=== PATIENT | female | born 1990 | race Caucasian/White ===

== ENCOUNTER 2023-05-18 17:54 | Inpatient (IN) ==
[2023-05-18] MEDS ORDERED: Lidocaine 1% VIAL 10 MG/ML 30 ML VIAL INJ PRN (19:45)
[2023-05-18] MEDS: Dinoprostone 10 MG VAG.SUPP VAGINAL ONE (20:13)
[2023-05-18 21:22] LABS: Urine Benzodiazepine Screen None Detected (None Detect); Urine Cannabinoids Screen None Detected (None Detect); Urine Opiates Screen None Detected (None Detect)
[2023-05-18] MEDS ORDERED: Morphine 10 MG/ML VIAL (1 ml) IM PRN (22:31)
[2023-05-18] MEDS ORDERED: Prochlorperazine 5 mg/ml 2 ml VIAL (10 mg) IM PRN (22:31)
[2023-05-19] MEDS: Calcium Carb (TUMS) 500 mg CHEW TAB PO PRN (09:12)
[2023-05-19] MEDS: Morphine 10 MG/ML VIAL (1 ml) IV PRN (11:07)
[2023-05-19] MEDS: Lactated Ringers 1000 ml BAG 1,000 ML IV ONE (11:08)
[2023-05-19] MEDS: Buffered Lidocaine 1% SYRIN 1 ml INTRADERM ONE (11:08)
[2023-05-19] MEDS: Prochlorperazine 5 mg/ml 2 ml VIAL (10 mg) IV PRN (11:10)
[2023-05-19 12:25] LABS: ABS Basophils 0.1 10^3/uL (0.0-0.1); ABS Eosinophils 0.1 10^3/uL (0.0-0.5); ABS Lymphocytes 1.9 10^3/uL (1.0-4.8); ABS Monocytes 0.7 10^3/uL (0.0-0.9); ABS Neutrophils 9.2 10^3/uL (1.5-7.6); Eosinophil % 0.4 %; Hematocrit 37.1 % (35-45); Hemoglobin 12.7 g/dL (11.5-14.3); Mean Corpuscular Hemoglobin 30.4 pg (27-33); Mean Corpuscular Hgb Conc 34.3 g/dL (31-36); Mean Corpuscular Volume 88.7 fL (80-97); Mean Platelet Volume 8.6 fL (7.5-11.2); Platelet Count 229 10^3/uL (150-450); Red Blood Count 4.18 10^6/uL (3.63-4.92); Red Cell Distribution Width 14.3 % (12-17); White Blood Count 11.9 10^3/uL (3.8-11.8)
[2023-05-19] MEDS ORDERED: Ondansetron 4 mg VIAL 2 MG/ML 2 ml VIAL IV PRN (12:32)
[2023-05-19] MEDS: miSOPROStol 100 mcg TAB PO ONE ×3 (13:00→22:16)
[2023-05-20] MEDS: miSOPROStol 100 mcg TAB PO ONE (01:17)
[2023-05-20] MEDS: miSOPROStol 100 mcg TAB ONE (09:15)
[2023-05-20] MEDS: fentaNYL 100 mcg/2 ml 50 MCG/ML VIAL IV SLOW PU PRN (15:00)
[2023-05-20] MEDS: Lactated Ringers 1000 ml BAG 1,000 ML IV SCH (21:59)
[2023-05-20] MEDS: Oxytocin in LR 20,000 MILLI.UNIT/1,000 ML BAG IV SCH (21:59)
[2023-05-21] MEDS ORDERED: Lidocaine 1.5% EPI 1:200,000 30 ML SDV ONE (02:43)
[2023-05-21] MEDS: OBEPIDURAL (200 ML) 200 ML EPIDURAL ONE (03:28)
[2023-05-21 04:48] LABS: Urine Appearance Clear; Urine Bilirubin Negative (Negative); Urine Blood 1+ (Negative); Urine Color Yellow; Urine Glucose Negative (Negative); Urine Ketones 4+ (Negative); Urine Nitrite Negative (Negative); Urine Protein 1+ (>=30 mg/dL) (Negative); Urine Specific Gravity 1.022 (1.002-1.030); Urine Urobilinogen Negative (Negative); Urine pH 6.5 (5.0-8.0)
[2023-05-21 06:03] LABS: Urine Bacteria Absent /HPF (Absent); Urine Red Blood Cell 1+(3-5/hpf) /HPF (0-Trace); Urine Squamous Epithelial Cell Present /HPF (Absent); Urine White Blood Cell Absent /HPF (0-Trace)
[2023-05-21] MEDS ORDERED: Dexamethasone IV 4 MG/ML VIAL 1 ml VIAL ONE (10:43)
[2023-05-21] MEDS ORDERED: Ondansetron 4 mg VIAL 2 MG/ML 2 ml VIAL ONE (10:43)
[2023-05-21] MEDS ORDERED: Oxytocin 10 UNITS/ML 1 ML VIAL ONE (10:43)
[2023-05-21] MEDS ORDERED: fentaNYL 100 mcg/2 ml 50 MCG/ML VIAL ONE (10:46)
[2023-05-21] MEDS ORDERED: Chloroprocaine 3% 20 ml VIAL ONE (10:46)
[2023-05-21] MEDS: Sodium Citrate/Citric Acid LIQ 15 ML UDC PO ONE (10:52)
[2023-05-21] MEDS: ceFOXitin 2 GM IVPREMIX 2 GM/50 ML BAG IVPB ONE (10:53)
[2023-05-21] MEDS ORDERED: Phenylephrine 40 mcg/mL 10mL (400mcg) SYRINGE ONE (11:20)
[2023-05-21] MEDS ORDERED: Lidocaine 2% w/ EPI 1:200,000 MPF 20 ML SDV VIAL ONE (11:26)
[2023-05-21] MEDS: Oxytocin in LR 20,000 MILLI.UNIT/1,000 ML BAG IV SCH (11:37)
[2023-05-21] MEDS ORDERED: Methylergonovine 0.2 mg AMPULE 1 ml AMP ONE (11:42)
[2023-05-21] MEDS ORDERED: Morphine PF AMP (0.5MG/ML) 5 MG/10 ML AMP ONE ×2 (11:50→12:08)
[2023-05-21] MEDS ORDERED: Naloxone 0.4 mg VIAL 0.4 mg/ml 1 ml VIAL IV PRN (11:53)
[2023-05-21] MEDS ORDERED: Metoclopramide 5 MG/ML VIAL (10 mg) IV PRN (11:54)
[2023-05-21] MEDS ORDERED: Acetaminophen IV 1 GM/100ML 1,000 MG/100 ML BAG IV PRN (11:54)
[2023-05-21] MEDS ORDERED: Ondansetron 4 mg VIAL 2 MG/ML 2 ml VIAL IV PRN (11:54)
[2023-05-21] MEDS ORDERED: Naloxone 0.4 mg VIAL 0.4 mg/ml 1 ml VIAL IV PUSH PRN (11:54)
[2023-05-21] MEDS ORDERED: Acetaminophen IV 1 GM/100ML 1,000 MG/100 ML BAG IV ONE (11:58)
[2023-05-21] MEDS ORDERED: Dibucaine 1% OINT 28.35 GM TUBE PR PRN (12:33)
[2023-05-21] MEDS ORDERED: Glycerin ADULT 2.4 gm SUPP PR PRN (12:33)
[2023-05-21] MEDS ORDERED: Witch Hazel PAD JAR TOPICAL PRN (12:33)
[2023-05-21] MEDS ORDERED: Lactated Ringers 1000 ml BAG 1,000 ML IV SCH (13:00)
[2023-05-21] MEDS: fentaNYL 100 mcg/2 ml 50 MCG/ML VIAL IV PRN (13:03)
[2023-05-22 06:45] LABS: ABS Basophils 0.1 10^3/uL (0.0-0.1); ABS Lymphocytes 2.4 10^3/uL (1.0-4.8); ABS Monocytes 1.4 10^3/uL (0.0-0.9); ABS Neutrophils 14.5 10^3/uL (1.5-7.6); ABS Nucleated RBC 0.01 10^3/ul; Eosinophil % 0.1 %; Hematocrit 29.4 % (35-45); Hemoglobin 10.2 g/dL (11.5-14.3); Lymphocyte % 13.1 %; Mean Corpuscular Hemoglobin 30.6 pg (27-33); Mean Corpuscular Hgb Conc 34.5 g/dL (31-36); Mean Corpuscular Volume 88.7 fL (80-97); Mean Platelet Volume 8.2 fL (7.5-11.2); Nucleated Red Blood Cells % 0.1 %/100WBC (0.0-0.8); Platelet Count 183 10^3/uL (150-450); Red Blood Count 3.32 10^6/uL (3.63-4.92); Red Cell Distribution Width 14.6 % (12-17); White Blood Count 18.4 10^3/uL (3.8-11.8)
[2023-05-22] MEDS ORDERED: Ondansetron 4 mg VIAL 2 MG/ML 2 ml VIAL IV PRN (11:54)
[2023-05-24 09:08] VITALS: BP 117/73
== END 2023-05-24 11:00 | disposition home or self-care (01) | DRG 540 ==
LOC: MCHOBOUT 17:54 → MCHOB 18:15
PROVIDERS: ADMIT Midwife; ATTEND Obstetrics & Gynecology